=== PATIENT | male | born 1980 | race American Indian/Alaskan Native ===

== ENCOUNTER 2019-07-04 10:48 | Emergency (ER) | payer SELFPAY ==
--- NOTE | 2019-07-04 11:14 | Event Note ---
ED Screening Note Date of service: 07/04/19 Time: 11:12 ED Screening Note: This is a 38 y.o. M. that presents to the ER with upper abdominal pain radiating to left flank x 1 day. PMH of peptic ulcers This initial assessment/diagnostic orders/clinical plan/treatment(s) is/are subject to change based on patients health status, clinical progression and re- assessment by fellow clinical providers in the ED. Further treatment and workup at subsequent clinical providers discretion. Patient/guardian urged not to elope from the ED as their condition may be serious if not clinically assessed and managed. Initial orders include: Labs US LUQ
[2019-07-04 11:43] LABS: Bilirubin,Urine NEG (Negative); Blood,Urine NEG (Negative); Color,Urine Yellow (Yellow); Mucus,Urine FEW /HPF; Protein,Urine <15 mg/dL mg/dL (Negative); WBC,Urine < 1.0 /HPF (0.0-6.0)
--- NOTE | 2019-07-04 12:34 | Emergency Department Report ---
ED Abdominal Pain HPI - General Chief Complaint: Abdominal Pain Stated Complaint: STOMACH ULCER PAIN Time Seen by Provider: 07/04/19 11:11 Source: patient Mode of arrival: Ambulatory Limitations: No Limitations - History of Present Illness Initial Comments: This 38-year-old with no prior medical history presents to ED complaining of upper abdominal pain that began last night. Patient states is at a history of this before and was given Motrin which helped with the pain. She denies fevers/chills/nausea vomiting/diarrhea or any other problems. MD Complaint: abdominal pain - Related Data Previous Rx's Medication Instructions Recorded Last Taken Type Famotidine [Pepcid] 20 mg PO BID #30 tablet 07/04/19 Unknown Rx Allergies Allergy/AdvReac Type Severity Reaction Status Date / Time No Known Allergies Allergy Unverified 07/04/19 10:51 ED Review of Systems ROS: Stated complaint: STOMACH ULCER PAIN Other details as noted in HPI Comment: All other systems reviewed and negative ED Past Medical Hx - Past Medical History Additional medical history: ULCER - Surgical History Past Surgical History?: No - Social History Smoking Status: Current Every Day Smoker Substance Use Type: None - Medications Home Medications: Home Medications Medication Instructions Recorded Confirmed Last Taken Type Famotidine [Pepcid] 20 mg PO BID #30 tablet 07/04/19 Unknown Rx ED Physical Exam - General Limitations: No Limitations General appearance: alert, in no apparent distress - Head Head exam: Present: atraumatic, normocephalic - Eye Eye exam: Present: normal appearance - ENT ENT exam: Present: mucous membranes moist - Neck Neck exam: Present: normal inspection - Respiratory Respiratory exam: Present: normal lung sounds bilaterally. Absent: respiratory distress - Cardiovascular Cardiovascular Exam: Present: regular rate, normal rhythm. Absent: systolic murmur, diastolic murmur, rubs, gallop - GI/Abdominal GI/Abdominal exam: Present: soft, normal bowel sounds. Absent: distended, tenderness, guarding, mass - Rectal Rectal exam: Present: deferred - Extremities Exam Extremities exam: Present: normal inspection, full ROM - Back Exam Back exam: Present: normal inspection - Neurological Exam Neurological exam: Present: alert, oriented X3 - Psychiatric Psychiatric exam: Present: normal affect, normal mood - Skin Skin exam: Present: warm, dry, intact, normal color. Absent: rash ED Course Vital Signs 07/04/19 11:10 Temperature 98.0 F Pulse Rate 86 Respiratory 18 Rate Blood Pressure 136/72 O2 Sat by Pulse 97 Oximetry ED Medical Decision Making - Lab Data Result diagrams: 07/04/19 13:06 07/04/19 13:06 Laboratory Last Values WBC 5.8 K/mm3 (4.5-11.0) 07/04/19 13:06 RBC 5.31 M/mm3 (3.65-5.03) H 07/04/19 13:06 Hgb 14.3 gm/dl (11.8-15.2) 07/04/19 13:06 Hct 44.6 % (35.5-45.6) 07/04/19 13:06 MCV 84 fl (84-94) 07/04/19 13:06 MCH 27 pg (28-32) L 07/04/19 13:06 MCHC 32 % (32-34) 07/04/19 13:06 RDW 15.0 % (13.2-15.2) 07/04/19 13:06 Plt Count 229 K/mm3 (140-440) 07/04/19 13:06 Sodium 135 mmol/L (137-145) L 07/04/19 13:06 Potassium 4.1 mmol/L (3.6-5.0) 07/04/19 13:06 Chloride 101.3 mmol/L (98-107) 07/04/19 13:06 Carbon Dioxide 19 mmol/L (22-30) L 07/04/19 13:06 Anion Gap 19 mmol/L 07/04/19 13:06 BUN 9 mg/dL (9-20) 07/04/19 13:06 Creatinine 0.7 mg/dL (0.8-1.5) L 07/04/19 13:06 Estimated GFR > 60 ml/min 07/04/19 13:06 BUN/Creatinine Ratio 13 % 07/04/19 13:06 Glucose 71 mg/dL (75-100) L 07/04/19 13:06 Calcium 8.9 mg/dL (8.4-10.2) 07/04/19 13:06 Total Bilirubin 0.20 mg/dL (0.1-1.2) 07/04/19 13:06 AST 26 units/L (5-40) 07/04/19 13:06 ALT 19 units/L (7-56) 07/04/19 13:06 Alkaline Phosphatase 86 units/L (35-129) 07/04/19 13:06 Total Protein 6.7 g/dL (6.3-8.2) 07/04/19 13:06 Albumin 3.9 g/dL (3.9-5) 07/04/19 13:06 Albumin/Globulin Ratio 1.4 % 07/04/19 13:06 Urine Color Yellow (Yellow) 07/04/19 11:23 Urine Turbidity Clear (Clear) 07/04/19 11:23 Urine pH 6.0 (5.0-7.0) 07/04/19 11:23 Ur Specific [place] 1.018 (1.003-1.030) 07/04/19 11:23 Urine Protein <15 mg/dl mg/dL (Negative) 07/04/19 11:23 Urine Glucose (UA) Neg mg/dL (Negative) 07/04/19 11:23 Urine Ketones Neg mg/dL (Negative) 07/04/19 11:23 Urine Blood Neg (Negative) 07/04/19 11:23 Urine Nitrite Neg (Negative) 07/04/19 11:23 Urine Bilirubin Neg (Negative) 07/04/19 11:23 Urine Urobilinogen 2.0 mg/dL (<2.0) 07/04/19 11:23 Ur Leukocyte Esterase Neg (Negative) 07/04/19 11:23 Urine WBC (Auto) < 1.0 /HPF (0.0-6.0) 07/04/19 11:23 Urine RBC (Auto) 4.0 /HPF (0.0-6.0) 07/04/19 11:23 Urine Mucus Few /HPF 07/04/19 11:23 - Medical Decision Making 38-year-old male presents with upper epigastric pain most likely secondary to acid reflux. Ultrasound of the abdomen shows, see report above Discussed results with patient. Discussed the patient Pepcid daily. Discussed follow-up with sheriff's sergeant. Patient is in no acute distress at all. Patient is resting comfortably in ED bed. Patient able to tolerate food and liquids without any problems. Patient examination shows no tenderness to the abdomen on all quadrants Vital signs are normal. Patient is in no distress Critical care attestation.: If time is entered above; I have spent that time in minutes in the direct care of this critically ill patient, excluding procedure time. ED Disposition Clinical Impression: Gastritis Disposition: DC-01 TO HOME OR SELFCARE Is pt being admited?: No Does the pt Need Aspirin: No Condition: Stable Instructions: Gastritis (ED), Diet for Ulcers and Gastritis (ED) Additional Instructions: Make sure to follow up with the primary care physician as discussed. Take all your medications as you've been prescribed. If you have any worsening symptoms or develop new symptoms please return to ED immediately. Prescriptions: Famotidine [Pepcid] 20 mg PO BID #30 tablet Referrals: [facility] [Provider Group] - 3-5 Days [facility] [Provider Group] - 3-5 Days Forms: Accompanied Note, Work/School Release Form(ED) Time of Disposition: 14:12
[2019-07-04] MEDS ORDERED: FAMOTIDINE 20 MG TAB PO ONE (13:19)
[2019-07-04 13:42] LABS: Hematocrit 44.6 % (35.5-45.6); Hemoglobin 14.3 gm/dl (11.8-15.2); Mean Corpuscular HGB Conc 32 % (32-34); Mean Corpuscular Volume 84 fl (84-94); Platelet Count 229 K/mm3 (140-440); Red Blood Count 5.31 M/mm3 (3.65-5.03)
--- NOTE | 2019-07-04 13:47 | Ultrasound Report ---
ULTRASOUND ABDOMEN, COMPLETE INDICATION / CLINICAL INFORMATION: upper abdominal pain. COMPARISON: None available. FINDINGS: PANCREAS: No significant abnormality. ABDOMINAL AORTA: Moderate atherosclerosis. No definite aneurysmal dilation. IVC: No significant abnormality. LIVER: No significant abnormality. GALLBLADDER: Not visualized. BILE DUCTS: No significant abnormality. Common bile duct measures 5 mm. KIDNEYS: Right: No significant abnormality. Left: No significant abnormality. SPLEEN: No significant abnormality. FREE FLUID: None. ADDITIONAL FINDINGS: None. IMPRESSION: 1. No acute sonographic abnormality. 2. Nonvisualization of gallbladder either due to contraction or absence. 3. Moderate atherosclerosis of the abdominal aorta without aneurysmal dilation Signer Name: Gautam Bender MD Signed: 07/04/2019 1:43 PM Workstation Name: [id number]
[2019-07-04 14:03] LABS: Alanine Aminotransferase 19 units/L (7-56); Albumin 3.9 g/dL (3.9-5); BUN/Creatinine Ratio 13; Blood Urea Nitrogen 9 mg/dL (9-20); Calcium 8.9 mg/dL (8.4-10.2); Hemolysis Index 21
[2019-07-04 14:29] VITALS: BP 128/70
[2019-07-04 14:29] LABS: Band Neutrophils # (Manual) 0.1 K/mm3; Platelet Estimate Consistent w Auto; RBC Morphology Normal; Total Cells Counted 100
== END 2019-07-04 14:29 | disposition home or self-care (01) ==
LOC: ED 10:48
DX: K29.70 Gastritis, unspecified, without bleeding (principal); F17.200 Nicotine dependence, unspecified, uncomplicated
CPT/HCPCS: 36415; 76700; 80053; 81001; 85007; 85025; 99284